=== PATIENT | female | born 1990 | race Two or more races ===

== ENCOUNTER 2021-10-12 16:29 | Emergency (ER) | payer BC ==
[~2021-10-12] VITALS: Ht 162.6 cm; Wt 79.4 kg
[2021-10-12 17:47] VITALS: BP 113/75
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
[2021-10-12] MEDS ORDERED: IBUPROFEN 600 MG TABLET ONE (18:27)
--- NOTE | 2021-10-12 18:29 | NUR ---
MOTRIN GIVEN TO PATIENT INDICATED.
[2021-10-12] MEDS ORDERED: IBUPROFEN 600 MG TABLET PO ONE (18:30)
[2021-10-12] MEDS ORDERED: CYCL10TA9 PO (19:45)
[2021-10-12] MEDS ORDERED: NAPR-1009 PO (19:45)
--- NOTE | 2021-10-12 19:56 | NUR ---
Patient discharged to home in stable condition. Written and verbal after care instructions given. Patient verbalizes understanding of instruction. pt ambulatory with a steady gait
== END 2021-10-12 22:02 | disposition home or self-care (01) ==
LOC: ER 16:29
DX: S16.1XXA Strain of muscle, fascia and tendon at neck level, initial encounter (principal); S50.12XA Contusion of left forearm, initial encounter; S60.222A Contusion of left hand, initial encounter; S80.211A Abrasion, right knee, initial encounter; Z79.899 Other long term (current) drug therapy; V49.49XA Driver injured in collision with other motor vehicles in traffic accident, initial encounter; Y93.89 Activity, other specified; Y92.413 State road as the place of occurrence of the external cause; Y99.8 Other external cause status
CPT/HCPCS: 73090-TC; 73130-TC; 73564-TC